=== PATIENT | female | born 1990 | race Caucasian/White ===

== ENCOUNTER 2016-04-16 17:54 | Inpatient (IN) | payer OTHER ==
[~2016-04-16] VITALS: Ht 157.5 cm; Wt 103.0 kg
[2016-04-16] VITALS (7 sets, daily range): BP systolic 122–139; BP diastolic 76–94
[2016-04-16] MEDS ORDERED: PRENTAB9 PO (19:00)
[2016-04-16] MEDS ORDERED: TUMS500C PO (19:00)
--- NOTE | 2016-04-16 19:06 | HPE ---
DATE OF ADMISSION: 04/16/2016 HISTORY: 25-year-old, 1, para 0 female at 40 and 6/7 weeks gestational age by last menstrual period and consistent with 18-week ultrasound, estimated date of confinement (EDC) of 04/10/2016, presents for labor induction due to gestational hypertension. She had a blood pressure in the office on the day of admission of 148/90. COURSE: The patient initiated care at 15-weeks gestation on 10/16/2015. Her initial blood pressure was 114/74. The remainder of her course was unremarkable until recent visits showing hypertension. MEDICAL HISTORY: Noncontributory. SURGICAL HISTORY: None. ALLERGIES: SHELLFISH. SOCIAL HISTORY: The patient denies cigarettes, alcohol or drug use. FAMILY HISTORY: Noncontributory. PHYSICAL EXAMINATION: Blood pressure 138/94, pulse 84. She is in no apparent distress. HEAD AND NECK EXAM: Normal. LUNGS: Clear. HEART: Regular rate and rhythm. ABDOMEN: Nontender, gravid. heart tones category 1. EXTREMITIES: Nontender. Trace edema. Reflexes 2+. LABORATORIES: Blood type B-, Rubella nonimmune. Hepatitis B and C negative. HIV negative. Abnormal diabetes screen with normal three hour glucose tolerance test. Group B streptococcus (GBS) negative on 03/12/2016. ASSESSMENT: 25-year-old, 1, para 0 female at 40 and 6/7 weeks gestational age with gestational hypertension. PLAN: Plan for labor induction. The risks of induction were discussed. The patient was admitted on 04/16/2016.
[2016-04-16] MEDS: miSOPROStol 50 MCG 1/2 TAB (S0191) PO SCH (19:56)
[2016-04-16 20:23] LABS: MEAN CORPUSCULAR HEMOGLOBIN 30.1 pg (27.0-33.0); MEAN CORPUSCULAR HGB CONC 35.7 g/dl (32.0-36.5); MEAN CORPUSCULAR VOLUME 84.5 fl (80.0-96.0); RED CELL DISTRIBUTION WIDTH 13.9 % (11.5-14.5); WHITE BLOOD COUNT 9.3 K/mm3 (4.0-10.0)
[2016-04-16 21:12] LABS: ALT/SGPT 14 U/L (12-78); AST/SGOT 10 U/L (15-37); BILIRUBIN,TOTAL 0.2 MG/DL (0.2-1.0); CREATININE FOR GFR 0.73 MG/DL (0.55-1.02); GLOMERULAR FILTRATION RATE > 60.0 (>60); URIC ACID 4.1 MG/DL (2.6-6.0)
[2016-04-17] VITALS (35 sets, daily range): BP systolic 109–158; BP diastolic 56–97
[2016-04-17] MEDS: miSOPROStol 50 MCG 1/2 TAB (S0191) PO SCH ×2 (00:23→06:30)
[2016-04-17] MEDS ORDERED: LACTATED RINGER'S 1000 ML IV ONE (07:30)
[2016-04-17] MEDS ORDERED: FENTANYL 2MCG/ML ROPIVACAINE 0.2% NACL 250 ML CADD As Ordered ONE (10:57)
[2016-04-17 11:26] LABS: MEAN CORPUSCULAR HGB CONC 34.5 g/dl (32.0-36.5); RED CELL DISTRIBUTION WIDTH 14.5 % (11.5-14.5); WHITE BLOOD COUNT 14.8 K/mm3 (4.0-10.0)
[2016-04-17] MEDS: OXYTOCIN DRIP 30 UNITS in APPROPRIATE DILUENT 1 EA IV SCH ×2 (14:33→17:10)
[2016-04-17] MEDS ORDERED: ePHEDrine SULFATE 25 MG/5 ML(5MG/ML) SYRINGE IV PRN (19:45)
[2016-04-17] MEDS ORDERED: LACTATED RINGER'S 1000 ML IV PRN (19:45)
[2016-04-17] MEDS ORDERED: FENTANYL/ROPIVACAINE/NACL CADD 250 ML EPIDURAL SCH (19:45)
[2016-04-17] MEDS ORDERED: ONDANSETRON 4MG/2ML VIAL (J2405) IV PRN (19:45)
[2016-04-17] MEDS ORDERED: REFRIGERATOR IV KEYS XX PRN (19:45)
[2016-04-17] MEDS ORDERED: EPIDURAL/PCA KEYS XX PRN (19:45)
[2016-04-17] MEDS ORDERED: NALOXONE INJ 0.4 MG/1 ML VIAL (J2310) IV PRN (19:45)
[2016-04-17] MEDS ORDERED: diphenhydrAMINE INJ 50MG/ML VIAL (J1200) IV PRN (19:45)
[2016-04-17] MEDS ORDERED: EPIDURAL COMMENT XX SCH (19:45)
[2016-04-18] MEDS: LR 1,000 ML IV SCH ×3 (01:09→16:50)
[2016-04-18] MEDS ORDERED: OXYTOCIN DRIP 30 UNITS in APPROPRIATE DILUENT 1 EA IV SCH (01:09)
[2016-04-18] MEDS ORDERED: RHOGAM 300 MCG (1500 IU) INJ (J2790) IM SCH (01:15)
[2016-04-18] MEDS ORDERED: DIBUCAINE 1% OINTMENT 30GM TOP PRN (01:15)
[2016-04-18] MEDS ORDERED: DOCUSATE SODIUM 100 MG CAP PO PRN (01:15)
[2016-04-18] MEDS ORDERED: ONDANSETRON 4MG/2ML VIAL (J2405) IV PRN (01:15)
[2016-04-18] MEDS ORDERED: MEASLES,MUMPS,RUBELLA VACCINE INJ (MMR-II) (90707) SC SCH (01:15)
[2016-04-18] MEDS ORDERED: PROMETHAZINE 25 MG TAB PO PRN (01:15)
[2016-04-18] MEDS ORDERED: ACETAMINOPHEN 500 MG TAB PO PRN (01:15)
[2016-04-18 02:49] VITALS: BP 120/65
[2016-04-18] MEDS: IBUPROFEN 800 MG TAB PO PRN ×2 (03:14→18:30)
[2016-04-18 06:00] VITALS: BP 111/66
[2016-04-18] MEDS: PRENATAL VITAMIN TAB PO SCH (08:42)
[2016-04-18 18:00] VITALS: BP 132/76
[2016-04-19 06:01] VITALS: BP 111/67
[2016-04-19] MEDS: PRENATAL VITAMIN TAB PO SCH (07:39)
[2016-04-19] MEDS ORDERED: COLA100C PO (11:19)
[2016-04-19] MEDS ORDERED: IBUP-1114 PO (11:19)
[2016-04-19] MEDS ORDERED: ACET50TA PO (11:19)
== END 2016-04-19 12:15 | disposition home or self-care (01) | DRG 560 ==
LOC: M LDI 17:54 → M OBS 04-18 02:56
PROVIDERS: ADMIT Specialist; ATTEND Specialist
PROC: 3E033VJ Introduction of Other Hormone into Peripheral Vein, Percutaneous Approach (ICD-10-PCS; 2016-04-16)
PROC: 10E0XZZ Delivery of Products of Conception, External Approach (ICD-10-PCS; principal; 2016-04-18)
DX: O13.4 Gestational [pregnancy-induced] hypertension without significant proteinuria, complicating childbirth (principal); O48.0 Post-term pregnancy; Z37.0 Single live birth; Z3A.40 40 weeks gestation of pregnancy; Z91.013 Allergy to seafood

== ENCOUNTER → 2016-10-07 | Outpatient (CLI) | payer OTHER ==
[~2016-10-07] MED LIST: ACET50TA PO; COLA100C5 PO; IBUP-1114 PO; PRENTAB9 PO; TUMS500C PO
--- NOTE | 2016-10-07 10:49 | REP ---
Soft-tissue ultrasound right knee: History: Sim's cyst right knee. Pain and paresthesias of the skin. Right posterior knee pain with tingling. Findings: Scanning of the posterior popliteal soft tissues show no abnormal fluid collection to suggest a Sim's cyst. No popliteal artery aneurysm or soft tissue mass is seen. Impression: Negative soft-tissue ultrasound right popliteal fossa. Signed by Bartolo Vargas MD 10/07/2016 04:02 P
== END ==
LOC: M RAD 09:49
PROVIDERS: ATTEND Psychiatry & Neurology Neurology
DX: M71.21 Synovial cyst of popliteal space [Baker], right knee (principal); R20.2 Paresthesia of skin; M25.561 Pain in right knee